=== PATIENT | male | born 1955 | race Caucasian/White ===

== ENCOUNTER 2018-07-31 01:06 | Emergency (ER) | payer BC ==
--- NOTE | 2018-07-31 02:16 | ER Document Report ---
ED General - General Chief Complaint: Low Blood Sugar Stated Complaint: BLOOD SUGAR PROBLEM Time Seen by Provider: 07/31/18 01:37 Notes: Patient is a 63-year-old male with a past medical history of type 2 diabetes with insulin dependence who presents with recurrent periods of hypoglycemia over the last 24 hours. He is visiting from [place] states that he has not been eating much throughout the day today but still taking his insulin as normally scheduled. He states that his blood sugars have been falling into the 60s. He has been eating mostly candy and cookies all day to try and bring it back up. States that he has been quite active today. Denies any symptoms currently but states that when his blood sugar dropped to 57 today he felt lightheaded, saw spots and felt like he was going to pass out. He has not contacted his primary doctor regarding today's concerns. TRAVEL OUTSIDE OF THE [place] IN LAST 30 DAYS: No - Related Data Allergies/Adverse Reactions: morphine Allergy (Uncoded 07/31/18 01:07) Past Medical History - General Information source: Patient - Social History Smoking Status: Never Smoker Frequency of alcohol use: None Drug Abuse: None Lives with: Spouse/Significant other Family History: Reviewed & Not Pertinent Review of Systems - Review of Systems Notes: Constitutional: Negative for fever. HENT: Negative for sore throat. Eyes: Negative for visual changes. Cardiovascular: Negative for chest pain. Respiratory: Negative for shortness of breath. Gastrointestinal: Negative for abdominal pain, vomiting or diarrhea. Genitourinary: Negative for dysuria. Musculoskeletal: Negative for back pain. Skin: Negative for rash. Neurological: Negative for headaches, weakness or numbness. 10 point ROS negative except as marked above and in HPI. Physical Exam - Vital signs Vitals: Temp Pulse Resp BP Pulse Ox 97.5 F 104 H 20 116/65 97 07/31/18 01:17 07/31/18 01:17 07/31/18 01:17 07/31/18 01:17 07/31/18 01:17 Interpretation: Tachycardic - Resolved at the time of my assessment Notes: PHYSICAL EXAMINATION: GENERAL: Well-appearing, well-nourished and in no acute distress. HEAD: Atraumatic, normocephalic. EYES: Pupils equal round and reactive to light, extraocular movements intact, sclera anicteric, conjunctiva are normal. ENT: nares patent, oropharynx clear without exudates. Moist mucous membranes. NECK: Normal range of motion, supple without lymphadenopathy LUNGS: Breath sounds clear to auscultation bilaterally and equal. No wheezes rales or rhonchi. HEART: Regular rate and rhythm without murmurs ABDOMEN: Soft, nontender, normoactive bowel sounds. No guarding, no rebound. No masses appreciated. EXTREMITIES: Normal range of motion, no pitting or edema. No cyanosis. NEUROLOGICAL: No focal neurological deficits. Moves all extremities spontaneously and on command. PSYCH: Normal mood, normal affect. SKIN: Warm, Dry, normal turgor, no rashes or lesions noted. Course - Re-evaluation Re-evalutation: 07/31/18 02:17 Patient recurrent hypoglycemia over the last 24 hours, likely related to insufficient food intake and the wrong kinds of food intake. Patient does take Humalog throughout the day and Lantus twice daily. I have advised him to eat proper meals, avoid rapidly digested sugary starches, and avoid taking his Humalog when he is ready hypoglycemic. He has no symptoms at the time of my assessment. BGL is currently 80. No indication for labs or imaging. At this time will discharge with return precautions and follow-up recommendations. Verbal discharge instructions given a the bedside and opportunity for questions given. Medication warnings reviewed. Patient is in agreement with this plan and has verbalized understanding of return precautions and the need for primary care follow-up in the next 24-72 hours. - Vital Signs Vital signs: Temp Pulse Resp BP Pulse Ox 97.5 F 104 H 20 116/65 97 07/31/18 01:17 07/31/18 01:17 07/31/18 01:17 07/31/18 01:17 07/31/18 01:17 Discharge - Discharge Clinical Impression: Hypoglycemia Type 2 diabetes mellitus Qualifiers: Diabetes mellitus simonizer insulin use: with intermediate use Diabetes mellitus complication status: with hypoglycemia Diabetes mellitus complication detail: without coma Qualified Code(s): E11.649 - Type 2 diabetes mellitus with hypoglycemia without coma; Z79.4 - calender runner (current) use of insulin; Z79.4 - skilled nursing (current) use of insulin; Z79.4 - calender runner (current) use of insulin; Z79.4 - skilled nursing (current) use of insulin Condition: Good Disposition: HOME, SELF-CARE Additional Instructions: Please be sure to eat complex meals and avoid sugary snacks. This will unfortunately spike your sugar up but then will not keep it up. I would recommend a meal that contains both a complex carbohydrate as well as protein and vegetables. Please avoid taking your Humalog if you check your blood sugar and note that it is less than 100. Return if you develop chest pain, shortness of breath, pass out, or have any other symptoms that are worrisome to you.
[2018-07-31 03:04] VITALS: BP 125/61
== END 2018-07-31 03:04 | disposition home or self-care (01) ==
LOC: ER 01:06
DX: E11.649 Type 2 diabetes mellitus with hypoglycemia without coma (principal); Z79.4 Long term (current) use of insulin; Z88.5 Allergy status to narcotic agent
CPT/HCPCS: 82962; 99285